=== PATIENT | female | born 1980 | race Caucasian/White ===

== ENCOUNTER 2024-10-09 08:12 | Day surgery (SDC) | payer OTHER ==
[~2024-10-09] VITALS: Ht 180.3 cm; Wt 96.2 kg
[~2024-10-09 08:12] MED LIST: AMLO1CAP56 PO; ZOFR4T PO
[2024-10-09] MEDS ORDERED: PHENYLEPHRINE HCL 10 MG/ML VL IV ONE (08:13)
[2024-10-09] MEDS ORDERED: EPINEPHrine HCL 1 MG/1 ML AMP ONE (08:35)
[2024-10-09] MEDS ORDERED: ceFAZolin 2 GM/D5W100ml 100 ML IV ONE (08:35)
[2024-10-09] MEDS ORDERED: TRANEXAMIC ACID 20 ML ONE (08:35)
[2024-10-09] MEDS ORDERED: MEPERIDINE HCL (25 MG/ML) 1ML VIAL ONE (09:15)
[2024-10-09] MEDS ORDERED: fentaNYL CITRATE 100 MCG/2 ML VL ONE (09:15)
[2024-10-09] MEDS ORDERED: MIDAZOLAM HCL 2MG/2ML 2ml VIAL (1mg/ml) ONE (09:15)
[2024-10-09] MEDS ORDERED: DexAMETHasone SOD PHOS 10MG/1ML VIAL INJ ONE (09:26)
[2024-10-09] MEDS ORDERED: MIDAZOLAM HCL 2MG/2ML 2ml VIAL (1mg/ml) IV PRN (09:45)
[2024-10-09] MEDS ORDERED: hydrALAZINE HCL 20 MG/ML VL IV PRN (09:45)
[2024-10-09] MEDS ORDERED: ePHEDrine SULFATE 50 MG/ML AMP IV PRN (09:45)
[2024-10-09] MEDS ORDERED: MORPHINE SULFATE 4 MG/ML SYR/VIAL IV PRN (09:45)
[2024-10-09] MEDS ORDERED: PROPOFOL 10 MG/ML 20 ML IV ONE (09:48)
[2024-10-09] MEDS: ROPIVACAINE 0.5% (5MG/ML) 20ML AMPULE IJ ONE (10:01)
[2024-10-09 10:22] VITALS: PULSE 74; RESP 11; O2SAT 99
--- NOTE | 2024-10-09 10:22 | DVHOP2 ---
Operative Report - 2 Report Details Date: 10/09/24 Preop Diagnosis: Right knee patellofemoral pain, medial meniscus tear, possible loose body Postop Diagnosis: Right knee patellofemoral pain with patellar tilt/subluxation Surgeon: Cy Baltazar MD Anesthesiologist: Pepe Anesthesia: General, Local Consent: The patient was informed of the risks and benefits of the procedure. These include but are not limited to complications of anesthesia, postoperative infection, incomplete relief of symptoms, recurrence of symptoms, damage to blood vessels, nerves and tendons, deep venous thrombosis, pulmonary embolism and possible need for repeat surgery in the future. Complications: None Estimated Blood Loss: Less than 5 cc Fluids: See anesthesia record Findings: On examination anesthesia normal range of motion no instability. 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 Preop patient received IV Ancef. Patient was given general anesthetic. Examination anesthesia performed. Tourniquet applied to the right thigh. Right lower extremity was prepped and draped in sterile fashion. Surgical time-out was performed verifying patient, laterality, and procedure. I 1st injected 10 cc of 0.5% ropivacaine into the portal sites and intra- articularly. I made inferolateral portal in usual fashion entered the joint blunt cannula and trocar and began my inspection 1st of the suprapatellar recess patellofemoral compartment medial gutter then medial compartment. I placed inferior medial portal utilizing spinal needle for guidance. I then thoroughly inspected and probed the structures with the findings noted above. I then shaved ligamentum mucosa and in the notch and then thoroughly probed and inspected ligaments which were intact and there was no evidence of loose body. I checked the lateral compartment in figure 4 position thoroughly inspected and probed the structures which were intact. I checked the lateral gutter which was free of loose bodies. I then switched my visualization instrumentation portals and used a hook electrode to perform lateral release then I switched back for visualization and noted some improvement in the tilt on flexion. I irrigated and suctioned several times closed the portal sites with Steri-Strips and dressed the wound sterilely released tourniquet patient tolerated the procedure well was brought to recovery room in stable condition Condition Stable Disposition Home CY BALTAZAR MD Oct 09, 2024 10:22
[2024-10-09] MEDS: KETOROLAC TROMETH 30 MG/ML 1ML VIAL IV ONE (10:27)
[2024-10-09] MEDS: HYDROmorphone HCL 2 MG/ML VL/or syr IV PRN (10:35)
[2024-10-09 10:37] VITALS: PULSE 83; RESP 17; O2SAT 97
[2024-10-09] MEDS: ONDANSETRON HCL 4 MG/2 ML VIAL IV ONE (11:28)
[2024-10-09 11:37] VITALS: BP 113/67; PULSE 79; RESP 13; O2SAT 94
== END 2024-10-09 11:52 | disposition home or self-care (01) ==
LOC: SUR 08:12
PROVIDERS: ATTEND Orthopaedic Surgery
DX: S83.241A Other tear of medial meniscus, current injury, right knee, initial encounter (principal); S83.001A Unspecified subluxation of right patella, initial encounter; M22.2X1 Patellofemoral disorders, right knee; M94.261 Chondromalacia, right knee; X58.XXXA Exposure to other specified factors, initial encounter; Y93.89 Activity, other specified; Y92.89 Other specified places as the place of occurrence of the external cause; Y99.8 Other external cause status; I10 Essential (primary) hypertension; E66.9 Obesity, unspecified; Z68.29 Body mass index [BMI] 29.0-29.9, adult; Z79.899 Other long term (current) drug therapy; Z98.891 History of uterine scar from previous surgery; Z98.890 Other specified postprocedural states; Z88.5 Allergy status to narcotic agent; Z91.040 Latex allergy status
CPT/HCPCS: 29873; J0171; J1100; J1171; J1885; J2175; J2250; J2371; J2405; J2704; J2795; J3010